=== PATIENT | male | born 1970 | race African-American/Black ===

== ENCOUNTER 2024-05-07 17:30 | Emergency (ER) | payer MEDICAID ==
[~2024-05-07] VITALS: Ht 177.8 cm; Wt 63.5 kg
[2024-05-07 17:37] VITALS: O2SAT 98
[2024-05-07 20:02] LABS: CLARITY URINE CLOUDY (CLEAR); COLOR URINE YELLOW (YELLOW); GLUCOSE URINE NEGATIVE (NEGATIVE); KETONES URINE NEGATIVE (NEGATIVE); NITRITE URINE NEGATIVE (NEGATIVE); OCCULT BLOOD URINE NEGATIVE (NEGATIVE); PROTEIN URINE NEGATIVE (NEGATIVE); SPECIFIC GRAVITY URINE 1.025 (1.005-1.030)
[2024-05-07 20:03] LABS: LEUKOCYTE ESTERASE URINE 2+ (NEGATIVE); UROBILINOGEN URINE 0.2 E.U./dL (0.2-1.0)
[2024-05-07] MEDS ORDERED: AZITHROMYCIN 500 MG TABLET PO ONE (20:30)
[2024-05-07] MEDS ORDERED: CEFTRIAXONE SODIUM 500MG VIAL IM ONE (20:30)
[2024-05-07] MEDS: AZITHROMYCIN 500 MG TABLET PO NR (21:41)
[2024-05-07] MEDS: CEFTRIAXONE SODIUM 500MG VIAL IM NR (21:41)
[2024-05-07 21:46] VITALS: BP 142/88; PULSE 98; RESP 14; TEMP 36.8; O2SAT 98
[2024-05-07 22:23] LABS: BACTERIA URINE 2+; RBC URINE 0-2 /hpf (0-2); SQUAMOUS EPITHELIAL CELL URINE 1+ /lpf (RARE/1+); WBC URINE 50-100 /hpf (0-2)
[2024-05-12 04:07] LABS: CHLAMYDIA TRACHOMATIS NAA Negative (Negative); NEISSERIA GONORRHOEAE NAA Positive (Negative)
== END 2024-05-07 21:47 | disposition home or self-care (01) ==
LOC: ER 17:30
DX: A74.9 Chlamydial infection, unspecified (principal); Z11.3 Encounter for screening for infections with a predominantly sexual mode of transmission; Z98.890 Other specified postprocedural states
CPT/HCPCS: 99283; 87491; 87591; 81003; 87086; 96372; J0696